=== PATIENT | female | born 1975 | race Caucasian/White ===

== ENCOUNTER 2021-11-27 12:29 | Outpatient (CLI) | payer BC | END 2021-11-27 12:30 | disposition home or self-care (01) | LOC: CSHULT 12:29 | PROVIDERS: ATTEND Family Medicine | DX: R10.2 Pelvic and perineal pain (principal); N83.201 Unspecified ovarian cyst, right side | CPT/HCPCS: 76856; 93976 ==

== ENCOUNTER 2022-01-27 11:45 | Outpatient (CLI) | payer BC | END 2022-01-27 11:46 | disposition home or self-care (01) | LOC: CSHMAMMO 11:45 | PROVIDERS: ATTEND Family Medicine | DX: Z12.31 Encounter for screening mammogram for malignant neoplasm of breast (principal) | CPT/HCPCS: 77063; 77067 ==